=== PATIENT | male | born 1945 | race Caucasian/White ===

== ENCOUNTER → 2023-04-03 | Outpatient (CLI) | payer MEDICARE, OTHER, SELFPAY ==
--- NOTE | 2023-04-03 06:45 | ECHOD_ITS ---
Reason For Study: AAA, Pre-op clearance Procedure This was a 2D Doppler, Color Flow transthoracic echocardiogram. Exam performed in department. Left Ventricle Normal LV size. Left ventricular systolic function is normal. The estimated ejection fraction is 65 %. Stage 1 diastolic dysfunction. No regional wall motion abnormalities noted. Right Ventricle Normal RV size. Normal systolic function. Atria Normal left atrium. Normal right atrium. Mitral Valve Normal mitral valve. Tricuspid Valve Normal tricuspid valve. Mild (1+) tricuspid valve insufficiency. Pulmonary artery systolic pressure is 24 mmHg. Aortic Valve Trisinus/trileaflet aortic valve. Moderate focal aortic valve calcification. Peak aortic valve gradient 33 mmHg. Mean aortic valve gradient 19 mmHg. Mild to moderate aortic stenosis. Pulmonic Valve Normal pulmonic valve. Great Vessels Normal aortic root. The pulmonary artery is normal size. Normal inferior vena cava. Pericardium/Pleural No pericardial effusion. MMode/2D Measurements & Calculations LVIDd: 4.2 cm IVSd: 1.1 cm LVOT diam: 2.0 cm LVIDs: 2.2 cm LVPWd: 1.1 cm LVOT area: 3.3 cm2 RVDd: 3.5 cm FS: 47.1 % Ao root diam: 3.0 cm LAV(MOD-bp): 39.3 ml LVAd ap4: 25.4 cm2 LAV(MOD-bp) Indexed: 24.9 ml/m2 LVLd ap4: 7.9 cm LAV(MOD-sp2): 43.2 ml EDV(MOD-sp4): 68.0 ml LAV(MOD-sp4): 30.1 ml EDV(sp4-el): 69.6 ml LVAs ap4: 13.9 cm2 LVLs ap4: 6.9 cm ESV(MOD-sp4): 24.9 ml ESV(sp4-el): 23.9 ml EF(MOD-sp4): 63.4 % EF(sp4-el): 65.7 % LVAd ap2: 21.6 cm2 SV(MOD-sp4): 43.1 ml SV(MOD-sp2): 28.0 ml LVLd ap2: 7.6 cm EDV(MOD-sp2): 50.6 ml EDV(sp2-el): 51.8 ml LVAs ap2: 13.2 cm2 LVLs ap2: 6.8 cm ESV(MOD-sp2): 22.6 ml ESV(sp2-el): 21.5 ml EF(MOD-sp2): 55.4 % SV(sp4-el): 45.7 ml LA dimension(2D): 3.6 cm LA A4 area: 14.4 cm2 RA A4 area: 9.3 cm2 TAPSE: 2.6 cm Time Measurements MV dec time: 0.22 sec Doppler Measurements & Calculations MV E max srikanth: 60.9 cm/sec Lat Peak E' Srikanth: 8.3 cm/sec Med Peak E' Srikanth: 8.6 cm/sec MV A max srikanth: 99.1 cm/sec E/E' lat: 7.3 E/E' med: 7.1 MV E/A: 0.61 Ao V2 max: 287.7 cm/sec AI max srikanth: 288.6 cm/sec LV V1 max: 112.0 cm/sec Ao max P.2 mmHg AI max P.3 mmHg LV V1 max P.0 mmHg Ao V2 mean: 206.8 cm/sec LV V1 mean P.4 mmHg Ao mean P.9 mmHg AI dec slope: 262.4 cm/sec2 LV V1 mean: 73.1 cm/sec Ao V2 VTI: 59.4 cm AI P1/2t: 322.2 msec LV V1 VTI: 21.4 cm AV (velocity ratio): 0.36 YANELI(I,D): 1.2 cm2 YANELI(V,D): 1.3 cm2 SV(LVOT): 70.0 ml PA V2 max: 94.7 cm/sec TR max srikanth: 226.4 cm/sec TR max P.5 mmHg ECHO/Echo Complete Interpretation Summary Normal LV size. Left ventricular systolic function is normal. The estimated ejection fraction is 65 %. Stage 1 diastolic dysfunction. Moderate focal aortic valve calcification. Mean aortic valve gradient 19 mmHg. Mild to moderate aortic stenosis. Ordering Physician: Finesse Navarro Referring Physician: Emilio Ventuar MD Performed By: Tania Matos RDCS
--- NOTE | 2023-04-03 13:20 | STRESSREP ---
Stress Test Report Pharmacologic myocardial perfusion stress test. 77-year-old man with a history of abdominal aortic aneurysm for preoperative evaluation Resting EKG demonstrates sinus rhythm with a rate of 69 bpm. Resting blood pressure is 110/70 mmHg. 0.4 mg of regadenoson was infused per usual protocol followed by rapid intravenous saline flush injection. Continuous EKG monitoring was performed. The maximum heart rate was 114 bpm which was 80% of max impacted heart rate the maximum workload was 1 metabolic equivalent. At rest there were no ST or T wave changes noted to suggest ischemia and at peak infusion nonspecific ST changes were noted which did not meet the criteria for ischemia. No clinical angina is noted. The final blood pressure was 92/50 mmHg. Myocardial perfusion protocol. 12.0 mCi of technetium 99m sestamibi was injected at rest. 0.4 mg of regadenoson was infused per usual protocol. At peak infusion 36 mCi of technetium 99m sestamibi was injected stress images were obtained stress and rest images were reconstructed and compared in the short axis vertical long and horizontal long axis. Gated images were also obtained. Perfusion SPECT analysis: Review of the stress images demonstrate normal uptake of tracer noted in all areas of the myocardium. The resting images similar demonstrated normal uptake of tracer noted in all areas of the myocardium. No areas of reversibility are noted to suggest ischemia and no previous infarct is noted. Gated SPECT analysis: The gated ejection fraction is 76%. Conclusion: Normal pharmacologic myocardial perfusion stress test. Preserved ejection fraction.
== END | disposition home or self-care (01) ==
LOC: CVS 06:44
PROVIDERS: PCP Family Medicine; Referring Provider Internal Medicine Cardiovascular Disease; Visit Provider Internal Medicine Cardiovascular Disease
DX: Z01.810 Encounter for preprocedural cardiovascular examination (principal); I71.40 Abdominal aortic aneurysm, without rupture, unspecified; E78.5 Hyperlipidemia, unspecified
CPT/HCPCS: 78452; 93017; 93306; A9500; A4216; J2785

== ENCOUNTER → 2023-05-14 | Outpatient (CLI) | payer MEDICARE, OTHER, SELFPAY ==
[2023-05-14 14:49] LABS: PSA,Total - Annual Screen 0.18 ng/mL (0.00-4.00)
== END | disposition home or self-care (01) ==
LOC: LAB 14:03
PROVIDERS: PCP Family Medicine; Referring Provider Nurse Practitioner; Visit Provider Nurse Practitioner
DX: Z12.5 Encounter for screening for malignant neoplasm of prostate (principal)
CPT/HCPCS: 36415; 84153; G0103